=== PATIENT | female | born 1950 | race Caucasian/White ===

== ENCOUNTER → 2016-09-05 | Outpatient (CLI) | payer MEDICARE ==
--- NOTE | 2016-09-05 10:15 | REPMRS ---
Patient History The patient states she had a clinical breast exam in 09/02 Patient is postmenopausal. Family history of prostate cancer in father at age 50 or over and breast cancer in mother at age 50 or over. Digital Woman Screen Mammo: September 05, 2016 - Exam #: [id number] Bilateral CC and MLO view(s) were taken. Technologist: Senait Estrella, Technologist Prior study comparison: September 11, 2014, digital woman screen mammo performed at [facility] to [facility]. July 14, 2008, bilateral digital woman screen mammo performed at [facility]. FINDINGS: There are scattered fibroglandular densities. There is a fairly symmetric fibroglandular pattern in both breasts. There has been no interval development of masses, areas of architectural distortion or clusters of microcalcifications typical of malignancy. ASSESSMENT: BI-RADS/ACR category 2 mammogram. Benign finding(s). Recommendation Routine screening mammogram of both breasts in 1 year (for women over age 40). This mammogram was interpreted with the aid of an FDA-approved computer-aided dectection system. Electronically Signed By: Dylan Maya MD 09/05/16 [id number]
== END ==
LOC: M WHC 08:19
PROVIDERS: ATTEND Nurse Practitioner Family
DX: Z12.31 Encounter for screening mammogram for malignant neoplasm of breast (principal); Z78.0 Asymptomatic menopausal state; Z12.12 Encounter for screening for malignant neoplasm of rectum; Z12.4 Encounter for screening for malignant neoplasm of cervix; Z80.3 Family history of malignant neoplasm of breast
CPT/HCPCS: 82270; G0101; G0123; G0202

== ENCOUNTER → 2016-09-05 | Outpatient (REF) | payer MEDICARE | LOC: M SFHCWAGY 08:54 | PROVIDERS: ATTEND Nurse Practitioner Family | DX: Z12.12 Encounter for screening for malignant neoplasm of rectum (principal); Z78.0 Asymptomatic menopausal state; Z12.4 Encounter for screening for malignant neoplasm of cervix; N95.2 Postmenopausal atrophic vaginitis; Z80.3 Family history of malignant neoplasm of breast ==